=== PATIENT | male | born 1960 | race Two or more races ===

== ENCOUNTER 2023-02-02 12:12 | Inpatient (IN) | payer MEDICAID ==
[~2023-02-02] VITALS: Ht 177.8 cm; Wt 85.7 kg
[2023-02-02] MEDS ORDERED: IV NS 0.9% 1,000 ML BAG IV ONE ×2 (12:30→15:30)
[2023-02-02 12:52] LABS: BASOPHILS # (AUTO) 0.1 K/uL (0.0-0.2); BASOPHILS % (AUTO) 1.6 % (0.0-2.0); EOSINOPHILS % (AUTO) 0.1 % (0.0-6.0); HEMATOCRIT 40 % (39-51); HEMOGLOBIN 13.5 g/dL (13.5-17.5); LYMPHOCYTES # (AUTO) 0.5 K/uL (0.8-4.8); LYMPHOCYTES % (AUTO) 10.1 % (20.0-44.0); MEAN CORPUSCULAR HEMOGLOBIN 32 PG (26.0-33.0); MEAN CORPUSCULAR HGB CONC 34 g/dl (31.0-36.0); MEAN CORPUSCULAR VOLUME 94 fL (80-96); MONOCYTES # (AUTO) 0.5 K/uL (0.1-1.30); MONOCYTES % (AUTO) 8.4 % (2.0-12.0); NEUTROPHILS # (AUTO) 4.3 K/uL (1.8-8.9); NEUTROPHILS % (AUTO) 79.8 % (43.0-81.0); PLATELET COUNT (AUTO) 194 K/uL (150-450); RED CELL DISTRIBUTION WIDTH 12.6 % (11.5-15.0); WHITE BLOOD COUNT (AUTO) 5.4 K/uL (4.3-11.0)
[2023-02-02 13:12] LABS: CALCIUM, SERUM 11.1 mg/dL (8.5-10.1); CARBON DIOXIDE 19 mmol/L (21-32); CHLORIDE 82 mmol/L (98-107); CREATININE 1.1 mg/dL (0.6-1.3); GLUCOSE 115 mg/dL (74-106); POTASSIUM 3.4 mmol/L (3.5-5.1); SODIUM SERUM 123 mmol/L (136-145); UREA NITROGEN, BLOOD 24 mg/dL (7-18)
[2023-02-02 13:21] LABS: LACTIC ACID 2.3 mmol/L (0.4-2.0)
[2023-02-02 13:26] LABS: THYROID STIMULATING HORMONE 1.102 uIU/mL (0.358-3.74)
[2023-02-02 13:27] LABS: ALANINE AMINOTRANSFERASE 37 U/L (12-78); ALBUMIN 3.4 g/dL (3.4-5.0); ALKALINE PHOSPHATASE 71 U/L (46-116); ASPARTATE AMINOTRANSFERASE 57 U/L (15-37); BILIRUBIN,DIRECT 0.3 mg/dL (0.0-0.2)
[2023-02-02] MEDS ORDERED: CHOL100040 PO (14:07)
[2023-02-02] MEDS ORDERED: PROM118S5 PO (14:07)
[2023-02-02] MEDS ORDERED: ATOR10TA PO (14:07)
[2023-02-02] MEDS ORDERED: MIRT-119 PO (14:07)
[2023-02-02] MEDS ORDERED: ASPI-1169 PO (14:07)
[2023-02-02] MEDS ORDERED: TRAZ-182 PO (14:07)
[2023-02-02] MEDS ORDERED: ONDA4TAB5 PO (14:07)
[2023-02-02] MEDS ORDERED: MULT-188 PO (14:07)
[2023-02-02] MEDS ORDERED: AMLO5TAB4 PO (14:07)
[2023-02-02] MEDS ORDERED: PREG100C PO (14:07)
[2023-02-02] MEDS ORDERED: TIZA4TAB5 PO (14:07)
[2023-02-02] MEDS ORDERED: OMEP40CA21 PO (14:07)
[2023-02-02] MEDS ORDERED: AMAN100T PO (14:07)
[2023-02-02] MEDS ORDERED: SERT50TA PO (14:07)
[2023-02-02] MEDS ORDERED: ALBU18HF2 IH (14:07)
[2023-02-02] MEDS ORDERED: RISP0.5T65 PO (14:07)
[2023-02-02] MEDS ORDERED: BUDE10.2 IH (14:07)
[2023-02-02] MEDS ORDERED: HYDR-3972 PO (14:07)
[2023-02-02] MEDS ORDERED: MONT10TA22 PO (14:07)
[2023-02-02] MEDS ORDERED: LORA-259 PO (14:07)
[2023-02-02] MEDS ORDERED: LISI20TA30 PO (14:23)
[2023-02-02] MEDS ORDERED: MAGNESIUM HYDROXIDE 30 ML UDC PO PRN (15:30)
[2023-02-02] MEDS ORDERED: MAG HYDROX/AL HYDROX/SIMETH 30 ML UDC PO PRN (15:30)
[2023-02-02] MEDS ORDERED: CEFEPIME 1 GM in IV D5W 50 ML IV ONE (15:30)
[2023-02-02] MEDS ORDERED: ONDANSETRON HCL/PF 4 MG/2 ML VIAL IVP PRN (15:30)
[2023-02-02] MEDS ORDERED: ACETAMINOPHEN 325 MG TABLET PO PRN (15:30)
[2023-02-02] MEDS ORDERED: MORPHINE SULFATE INJ 2 MG/ML DISP.SYRIN IV PRN (15:30)
[2023-02-02] MEDS ORDERED: VANCOMYCIN 1 GM in IV D5W 250 ML IV ONE (15:30)
[2023-02-02] MEDS ORDERED: IV NS 0.9% 1,000 ML IV SCH (15:30)
[2023-02-02 15:40] VITALS: BP 175/91; TEMP 97.9; O2SAT 100
[2023-02-02] MEDS ORDERED: LORAZEPAM INJ 2 MG/ML VIAL IV PRN (17:00)
[2023-02-02 17:17] LABS: SERUM AMMONIA 4 umol/L (11-32)
[2023-02-02 17:28] LABS: ACETONE, SERUM MODERATE (NEGATIVE)
[2023-02-02] MEDS: CHLORDIAZEPOXIDE HCL 25 MG CAPSULE PO SCH (18:06)
[2023-02-02 20:00] VITALS: BP 167/98; TEMP 98.6; O2SAT 100
[2023-02-02] MEDS: HEPARIN SODIUM, PORCINE 5000 UNITS/1 ML VIAL SQ SCH (21:08)
[2023-02-02 21:18] LABS: CALCIUM, SERUM 9.7 mg/dL (8.5-10.1); CREATININE 0.9 mg/dL (0.6-1.3)
[2023-02-02 21:21] LABS: POTASSIUM 2.7 mmol/L (3.5-5.1)
[2023-02-02] MEDS ORDERED: IV NS 0.9% 1,000 ML BAG IV PRN (21:30)
[2023-02-02] MEDS: POTASSIUM CHLORIDE 10 MEQ/50 ML PREMIXED IVPB FOR PERIPHERAL LINE IV SCH ×2 (22:43→23:53)
[2023-02-02] MEDS: IV NS 0.9% 1,000 ML IV PRN (22:44)
[2023-02-03] VITALS: BP 166/93; TEMP 98.2; O2SAT 100
[2023-02-03] MEDS: CHLORDIAZEPOXIDE HCL 25 MG CAPSULE PO SCH ×3 (00:07→16:29)
[2023-02-03] MEDS: CLONIDINE HCL 0.1 MG TABLET PO PRN (00:43)
[2023-02-03] MEDS: POTASSIUM CHLORIDE 10 MEQ/50 ML PREMIXED IVPB FOR PERIPHERAL LINE IV SCH ×2 (01:05→02:04)
[2023-02-03 04:00] VITALS: BP 106/82; TEMP 98.4; O2SAT 100
[2023-02-03 06:19] LABS: BASOPHILS % (AUTO) 0.1 % (0.0-2.0); EOSINOPHILS % (AUTO) 0.5 % (0.0-6.0); HEMATOCRIT 38 % (39-51); HEMOGLOBIN 12.6 g/dL (13.5-17.5); LYMPHOCYTES # (AUTO) 0.8 K/uL (0.8-4.8); LYMPHOCYTES % (AUTO) 15.5 % (20.0-44.0); MEAN CORPUSCULAR HEMOGLOBIN 33 PG (26.0-33.0); MEAN CORPUSCULAR HGB CONC 33 g/dl (31.0-36.0); MEAN CORPUSCULAR VOLUME 98 fL (80-96); MONOCYTES # (AUTO) 0.9 K/uL (0.1-1.30); MONOCYTES % (AUTO) 16.1 % (2.0-12.0); NEUTROPHILS # (AUTO) 3.6 K/uL (1.8-8.9); NEUTROPHILS % (AUTO) 67.8 % (43.0-81.0); PLATELET COUNT (AUTO) 154 K/uL (150-450); RED BLOOD CELL COUNT(AUTO) 3.86 MIL/uL (4.5-6.0); RED CELL DISTRIBUTION WIDTH 12.9 % (11.5-15.0); WHITE BLOOD COUNT (AUTO) 5.4 K/uL (4.3-11.0)
[2023-02-03 06:41] LABS: ALBUMIN 2.5 g/dL (3.4-5.0); BILIRUBIN,TOTAL 0.6 mg/dL (0.2-1.0); CALCIUM, SERUM 8.4 mg/dL (8.5-10.1); CREATININE 0.8 mg/dL (0.6-1.3); MAGNESIUM 1.6 mg/dL (1.8-2.4); TOTAL PROTEIN, SERUM 5.5 g/dL (6.4-8.2)
[2023-02-03 06:51] LABS: POTASSIUM 2.8 mmol/L (3.5-5.1)
[2023-02-03 07:00] VITALS: BP 138/82; TEMP 97.7; O2SAT 100
[2023-02-03] MEDS: LISINOPRIL (20MG) 20 MG TABLET PO SCH (08:52)
[2023-02-03] MEDS: HEPARIN SODIUM, PORCINE 5000 UNITS/1 ML VIAL SQ SCH ×2 (08:53→20:51)
[2023-02-03] MEDS: POTASSIUM CHLORIDE 20 MEQ TAB.PRT.SR PO SCH ×2 (08:56→16:29)
[2023-02-03] MEDS ORDERED: MAGNESIUM OXIDE 400 MG TABLET PO ONE (11:00)
[2023-02-03] MEDS: IV NS 0.9% 1,000 ML IV PRN ×2 (11:24→21:44)
[2023-02-03 11:30] VITALS: BP 101/78; TEMP 97.5; O2SAT 100
[2023-02-03 16:00] VITALS: BP 100/60; TEMP 97.4; O2SAT 99
[2023-02-03] MEDS ORDERED: NEUTRA PHOS 1 POWD.PACKET PO ONE (16:00)
[2023-02-03 19:49] LABS: URINE SODIUM, RANDOM 20 mmol/l (40-220)
[2023-02-03 19:51] LABS: APPEARANCE,URINE CLEAR (CLEAR); BILIRUBIN,URINE 1+ (NEGATIVE); BLOOD, URINE NEGATIVE Ery/uL (NEGATIVE); COLOR,URINE YELLOW (YELLOW); KETONES,URINE 2+ mg/dL (NEGATIVE); LEUKOCYTE ESTERASE ,URINE NEGATIVE (NEGATIVE); NITRITE, URINE NEGATIVE (NEGATIVE); PROTEIN,URINE 1+ mg/dl (NEGATIVE); UGLUCOSE NEGATIVE (NEGATIVE)
[2023-02-03 20:36] VITALS: BP 102/63; TEMP 98; O2SAT 96
[2023-02-03 20:52] LABS: ADD URINE CULTURE YES; BACTERIA,URINE 2+ /HPF (None Seen); MUCUS,URINE Few /LPF (None Seen); RBC,URINE 0-2 /HPF (0-2); SQUAMOUS EPITHELIAL CELL,UR None Seen /HPF (None Seen); WBC,URINE NONE SEEN /HPF (0-3); YEAST,URINE Rare /HPF (None Seen)
[2023-02-04] MEDS: CHLORDIAZEPOXIDE HCL 25 MG CAPSULE PO SCH ×4 (01:52→16:56)
[2023-02-04 05:47] LABS: BASOPHILS % (AUTO) 0.7 % (0.0-2.0); EOSINOPHILS # (AUTO) 0.1 K/uL (0.0-0.7); EOSINOPHILS % (AUTO) 1.2 % (0.0-6.0); HEMATOCRIT 31 % (39-51); HEMOGLOBIN 10.8 g/dL (13.5-17.5); LYMPHOCYTES # (AUTO) 0.9 K/uL (0.8-4.8); LYMPHOCYTES % (AUTO) 21.9 % (20.0-44.0); MEAN CORPUSCULAR HEMOGLOBIN 32 PG (26.0-33.0); MEAN CORPUSCULAR HGB CONC 34 g/dl (31.0-36.0); MEAN CORPUSCULAR VOLUME 94 fL (80-96); MONOCYTES # (AUTO) 0.4 K/uL (0.1-1.30); MONOCYTES % (AUTO) 10.3 % (2.0-12.0); NEUTROPHILS # (AUTO) 2.8 K/uL (1.8-8.9); NEUTROPHILS % (AUTO) 65.9 % (43.0-81.0); PLATELET COUNT (AUTO) 162 K/uL (150-450); RED BLOOD CELL COUNT(AUTO) 3.34 MIL/uL (4.5-6.0); RED CELL DISTRIBUTION WIDTH 12.7 % (11.5-15.0); WHITE BLOOD COUNT (AUTO) 4.3 K/uL (4.3-11.0)
[2023-02-04 06:08] LABS: CALCIUM, SERUM 7.8 mg/dL (8.5-10.1); CREATININE 0.7 mg/dL (0.6-1.3); MAGNESIUM 1.3 mg/dL (1.8-2.4); PHOSPHORUS 1.2 mg/dL (2.5-4.9); POTASSIUM 2.9 mmol/L (3.5-5.1)
[2023-02-04 06:17] LABS: THYROID STIMULATING HORMONE 1.326 uIU/mL (0.358-3.74); URIC ACID 6.7 mg/dL (2.6-7.2)
[2023-02-04 07:00] VITALS: BP 146/83; TEMP 97.7; O2SAT 100
[2023-02-04] MEDS: POTASSIUM CHLORIDE 20 MEQ TAB.PRT.SR PO SCH ×2 (09:54→16:55)
[2023-02-04] MEDS: LISINOPRIL (20MG) 20 MG TABLET PO SCH (09:54)
[2023-02-04] MEDS: HEPARIN SODIUM, PORCINE 5000 UNITS/1 ML VIAL SQ SCH ×2 (09:56→21:37)
[2023-02-04] MEDS: ENSURE ENLIVE 237 ML LIQUID (VANILLA) PO SCH (09:57)
[2023-02-04] MEDS: Magnesium 1GM/D5W 100ML PREMIX 100 ML IV SCH ×4 (11:16→14:22)
[2023-02-04 11:30] VITALS: BP 122/78; TEMP 98.9; O2SAT 99
[2023-02-04] MEDS: Potassium Chloride 20 MEQ in IV NS 0.9% 1,000 ML IV SCH ×2 (11:46→22:01)
[2023-02-04] MEDS: NEUTRA PHOS 1 POWD.PACKET PO SCH ×3 (11:47→16:55)
[2023-02-04 14:34] LABS: OSMOLALITY,URINE 695 mOS/kg (340-1090)
[2023-02-04 16:00] VITALS: BP 114/73; TEMP 98.2; O2SAT 99
[2023-02-04 20:00] VITALS: BP 131/80; TEMP 98; O2SAT 98
[2023-02-05 08:00] VITALS: BP 125/73; TEMP 98.8; O2SAT 97
[2023-02-05] MEDS: Potassium Chloride 20 MEQ in IV NS 0.9% 1,000 ML IV SCH ×2 (08:10→19:52)
[2023-02-05] MEDS: CHLORDIAZEPOXIDE HCL 25 MG CAPSULE PO SCH ×3 (09:00→17:00)
[2023-02-05 09:19] LABS: CALCIUM, SERUM 7.8 mg/dL (8.5-10.1); CREATININE 0.7 mg/dL (0.6-1.3); POTASSIUM 3.9 mmol/L (3.5-5.1)
[2023-02-05 09:24] LABS: ALBUMIN 2.1 g/dL (3.4-5.0); BILIRUBIN,TOTAL 0.4 mg/dL (0.2-1.0); TOTAL PROTEIN, SERUM 5.3 g/dL (6.4-8.2)
[2023-02-05] MEDS: ENSURE ENLIVE 237 ML LIQUID (VANILLA) PO SCH (09:26)
[2023-02-05] MEDS: LISINOPRIL (20MG) 20 MG TABLET PO SCH (09:28)
[2023-02-05] MEDS: HEPARIN SODIUM, PORCINE 5000 UNITS/1 ML VIAL SQ SCH ×2 (09:31→20:37)
[2023-02-05] MEDS ORDERED: Z GUARD REMEDY 4 OZ OINT TP PRN (10:30)
[2023-02-05] MEDS: Z GUARD REMEDY 4 OZ OINT TP SCH (11:17)
[2023-02-05 16:00] VITALS: BP 145/79; TEMP 99.5; O2SAT 99
[2023-02-05] MEDS: CLOTRIMAZOLE 1% 15 GM TUBE TP SCH (17:16)
[2023-02-05 20:00] VITALS: BP 141/81; TEMP 98.8; O2SAT 99
[2023-02-06] MEDS: Potassium Chloride 20 MEQ in IV NS 0.9% 1,000 ML IV SCH ×2 (05:29→14:23)
[2023-02-06 06:17] LABS: CREATININE 0.6 mg/dL (0.6-1.3); POTASSIUM 3.9 mmol/L (3.5-5.1)
[2023-02-06 06:32] LABS: ALBUMIN 2.2 g/dL (3.4-5.0); BILIRUBIN,TOTAL 0.3 mg/dL (0.2-1.0); TOTAL PROTEIN, SERUM 5.5 g/dL (6.4-8.2)
[2023-02-06 08:00] VITALS: BP 150/94; TEMP 99; O2SAT 96
[2023-02-06] MEDS: Z GUARD REMEDY 4 OZ OINT TP SCH (09:49)
[2023-02-06] MEDS: CLOTRIMAZOLE 1% 15 GM TUBE TP SCH ×2 (09:49→16:16)
[2023-02-06] MEDS: LISINOPRIL (20MG) 20 MG TABLET PO SCH (09:49)
[2023-02-06] MEDS: HEPARIN SODIUM, PORCINE 5000 UNITS/1 ML VIAL SQ SCH ×2 (09:50→20:58)
[2023-02-06] MEDS: ENSURE ENLIVE 237 ML LIQUID (VANILLA) PO SCH (09:58)
[2023-02-06 16:00] VITALS: BP 150/84; TEMP 100; O2SAT 100
[2023-02-07] MEDS: Potassium Chloride 20 MEQ in IV NS 0.9% 1,000 ML IV SCH ×3 (00:43→22:45)
[2023-02-07 04:12] VITALS: BP 177/91; TEMP 97.1; O2SAT 98
[2023-02-07] MEDS: CLONIDINE HCL 0.1 MG TABLET PO PRN (04:17)
[2023-02-07 07:10] LABS: CALCIUM, SERUM 8.1 mg/dL (8.5-10.1); CREATININE 0.6 mg/dL (0.6-1.3); POTASSIUM 3.9 mmol/L (3.5-5.1)
[2023-02-07 07:15] LABS: BILIRUBIN,TOTAL 0.2 mg/dL (0.2-1.0); TOTAL PROTEIN, SERUM 5.4 g/dL (6.4-8.2)
[2023-02-07 08:00] VITALS: BP 147/87; TEMP 97.7; O2SAT 100
[2023-02-07 08:19] LABS: BASOPHILS % (AUTO) 0.4 % (0.0-2.0); EOSINOPHILS % (AUTO) 0.7 % (0.0-6.0); HEMATOCRIT 33 % (39-51); HEMOGLOBIN 11.2 g/dL (13.5-17.5); LYMPHOCYTES # (AUTO) 1.1 K/uL (0.8-4.8); LYMPHOCYTES % (AUTO) 19.5 % (20.0-44.0); MEAN CORPUSCULAR HEMOGLOBIN 32 PG (26.0-33.0); MEAN CORPUSCULAR HGB CONC 34 g/dl (31.0-36.0); MEAN CORPUSCULAR VOLUME 96 fL (80-96); MONOCYTES # (AUTO) 0.6 K/uL (0.1-1.30); MONOCYTES % (AUTO) 11.9 % (2.0-12.0); NEUTROPHILS # (AUTO) 3.6 K/uL (1.8-8.9); NEUTROPHILS % (AUTO) 67.5 % (43.0-81.0); PLATELET COUNT (AUTO) 189 K/uL (150-450); RED BLOOD CELL COUNT(AUTO) 3.46 MIL/uL (4.5-6.0); RED CELL DISTRIBUTION WIDTH 13.3 % (11.5-15.0); WHITE BLOOD COUNT (AUTO) 5.4 K/uL (4.3-11.0)
[2023-02-07] MEDS: THIAMINE HCL 100 MG TABLET PO SCH (08:43)
[2023-02-07] MEDS: AMLODIPINE BESYLATE 5 MG TABLET PO SCH (08:43)
[2023-02-07] MEDS: LISINOPRIL (20MG) 20 MG TABLET PO SCH (08:44)
[2023-02-07] MEDS: ENSURE ENLIVE 237 ML LIQUID (VANILLA) PO SCH (08:44)
[2023-02-07] MEDS: FOLIC ACID 1 MG TABLET PO SCH (08:44)
[2023-02-07] MEDS: HEPARIN SODIUM, PORCINE 5000 UNITS/1 ML VIAL SQ SCH ×3 (08:47→21:58)
[2023-02-07] MEDS: Z GUARD REMEDY 4 OZ OINT TP SCH (10:02)
[2023-02-07] MEDS: CLOTRIMAZOLE 1% 15 GM TUBE TP SCH ×2 (10:02→17:45)
[2023-02-07 16:00] VITALS: BP 146/86; TEMP 98.5; O2SAT 100
[2023-02-07] MEDS: CYANOCOBALAMIN 1,000 MCG/ML VIAL IM SCH (17:46)
[2023-02-07 20:00] VITALS: BP 138/81; TEMP 98.5; O2SAT 100
[2023-02-08] MEDS: Potassium Chloride 20 MEQ in IV NS 0.9% 1,000 ML IV SCH ×2 (06:24→17:48)
[2023-02-08 07:00] LABS: CALCIUM, SERUM 8.5 mg/dL (8.5-10.1); CREATININE 0.6 mg/dL (0.6-1.3); POTASSIUM 3.9 mmol/L (3.5-5.1)
[2023-02-08 07:06] LABS: ALBUMIN 2.3 g/dL (3.4-5.0); BILIRUBIN,TOTAL 0.3 mg/dL (0.2-1.0)
[2023-02-08 08:00] VITALS: BP 164/92; TEMP 97.5; O2SAT 100
[2023-02-08] MEDS: FOLIC ACID 1 MG TABLET PO SCH (08:43)
[2023-02-08] MEDS: THIAMINE HCL 100 MG TABLET PO SCH (08:43)
[2023-02-08] MEDS: LISINOPRIL (20MG) 20 MG TABLET PO SCH (08:44)
[2023-02-08] MEDS: AMLODIPINE BESYLATE 5 MG TABLET PO SCH (08:52)
[2023-02-08] MEDS: HEPARIN SODIUM, PORCINE 5000 UNITS/1 ML VIAL SQ SCH ×2 (08:56→20:26)
[2023-02-08] MEDS: ENSURE ENLIVE 237 ML LIQUID (VANILLA) PO SCH (08:59)
[2023-02-08] MEDS: CYANOCOBALAMIN 1,000 MCG/ML VIAL IM SCH (08:59)
[2023-02-08] MEDS: CLOTRIMAZOLE 1% 15 GM TUBE TP SCH ×2 (09:00→17:55)
[2023-02-08] MEDS: Z GUARD REMEDY 4 OZ OINT TP SCH (09:01)
[2023-02-08 16:00] VITALS: BP 114/71; TEMP 97.4; O2SAT 99
[2023-02-08 20:41] VITALS: BP 142/85; TEMP 97.7; O2SAT 100
[2023-02-09] MEDS: Potassium Chloride 20 MEQ in IV NS 0.9% 1,000 ML IV SCH (02:33)
[2023-02-09 06:56] LABS: CALCIUM, SERUM 9.2 mg/dL (8.5-10.1); CREATININE 0.7 mg/dL (0.6-1.3); POTASSIUM 3.6 mmol/L (3.5-5.1)
[2023-02-09 07:01] LABS: ALBUMIN 2.6 g/dL (3.4-5.0); BILIRUBIN,TOTAL 0.3 mg/dL (0.2-1.0)
[2023-02-09 08:00] VITALS: BP 141/99; TEMP 97.4; O2SAT 100
[2023-02-09] MEDS: LISINOPRIL (20MG) 20 MG TABLET PO SCH (09:15)
[2023-02-09] MEDS: THIAMINE HCL 100 MG TABLET PO SCH (09:15)
[2023-02-09] MEDS: FOLIC ACID 1 MG TABLET PO SCH (09:15)
[2023-02-09] MEDS: Z GUARD REMEDY 4 OZ OINT TP SCH (09:16)
[2023-02-09] MEDS: AMLODIPINE BESYLATE 5 MG TABLET PO SCH (09:16)
[2023-02-09] MEDS: CLOTRIMAZOLE 1% 15 GM TUBE TP SCH ×2 (09:16→16:11)
[2023-02-09] MEDS: CYANOCOBALAMIN 1,000 MCG/ML VIAL IM SCH (09:16)
[2023-02-09] MEDS: ENSURE ENLIVE 237 ML LIQUID (VANILLA) PO SCH (09:17)
[2023-02-09] MEDS: HEPARIN SODIUM, PORCINE 5000 UNITS/1 ML VIAL SQ SCH ×2 (09:22→20:18)
[2023-02-09 16:00] VITALS: BP 129/82; TEMP 97.9; O2SAT 98
[2023-02-09 19:00] VITALS: BP 147/85; TEMP 97.9; O2SAT 100
[2023-02-09 20:00] VITALS: BP 147/85; TEMP 97.9; O2SAT 100
[2023-02-10 07:47] LABS: CALCIUM, SERUM 9.3 mg/dL (8.5-10.1); CREATININE 0.8 mg/dL (0.6-1.3); POTASSIUM 3.8 mmol/L (3.5-5.1)
[2023-02-10 07:53] LABS: ALBUMIN 2.7 g/dL (3.4-5.0); BILIRUBIN,TOTAL 0.3 mg/dL (0.2-1.0); TOTAL PROTEIN, SERUM 6.9 g/dL (6.4-8.2)
[2023-02-10] MEDS: THIAMINE HCL 100 MG TABLET PO SCH (09:01)
[2023-02-10] MEDS: FOLIC ACID 1 MG TABLET PO SCH (09:01)
[2023-02-10] MEDS: LISINOPRIL (20MG) 20 MG TABLET PO SCH (09:03)
[2023-02-10] MEDS: AMLODIPINE BESYLATE 5 MG TABLET PO SCH (09:03)
[2023-02-10] MEDS: Z GUARD REMEDY 4 OZ OINT TP SCH (09:25)
[2023-02-10] MEDS: CYANOCOBALAMIN 1,000 MCG/ML VIAL IM SCH (09:25)
[2023-02-10] MEDS: CLOTRIMAZOLE 1% 15 GM TUBE TP SCH ×2 (09:30→17:50)
[2023-02-10 10:44] VITALS: BP 140/84; TEMP 97.6; O2SAT 100
[2023-02-10 20:00] VITALS: BP 146/84; TEMP 98; O2SAT 100
[2023-02-11 05:55] LABS: CALCIUM, SERUM 9.6 mg/dL (8.5-10.1); CREATININE 0.8 mg/dL (0.6-1.3); POTASSIUM 3.6 mmol/L (3.5-5.1)
[2023-02-11 06:00] LABS: ALBUMIN 2.7 g/dL (3.4-5.0); BILIRUBIN,TOTAL 0.3 mg/dL (0.2-1.0); TOTAL PROTEIN, SERUM 6.6 g/dL (6.4-8.2)
[2023-02-11 08:00] VITALS: BP 123/89; TEMP 98.2; O2SAT 100
[2023-02-11] MEDS: CYANOCOBALAMIN 1,000 MCG/ML VIAL IM SCH (08:40)
[2023-02-11] MEDS: THIAMINE HCL 100 MG TABLET PO SCH (08:41)
[2023-02-11] MEDS: LISINOPRIL (20MG) 20 MG TABLET PO SCH (08:41)
[2023-02-11] MEDS: FOLIC ACID 1 MG TABLET PO SCH (08:42)
[2023-02-11] MEDS: AMLODIPINE BESYLATE 5 MG TABLET PO SCH (08:42)
[2023-02-11] MEDS: CLOTRIMAZOLE 1% 15 GM TUBE TP SCH ×2 (08:42→16:43)
[2023-02-11] MEDS: Z GUARD REMEDY 4 OZ OINT TP SCH (08:43)
[2023-02-11 18:29] VITALS: BP 96/72; TEMP 98.6; O2SAT 100
[2023-02-11 20:00] VITALS: BP 115/92; TEMP 98.7; O2SAT 99
[2023-02-12 06:57] LABS: CALCIUM, SERUM 9.4 mg/dL (8.5-10.1); CREATININE 0.9 mg/dL (0.6-1.3); POTASSIUM 3.5 mmol/L (3.5-5.1)
[2023-02-12 07:03] LABS: BILIRUBIN,TOTAL 0.4 mg/dL (0.2-1.0); TOTAL PROTEIN, SERUM 7.3 g/dL (6.4-8.2)
[2023-02-12 07:30] VITALS: BP 129/82; TEMP 98.4; O2SAT 100
[2023-02-12] MEDS: THIAMINE HCL 100 MG TABLET PO SCH (08:48)
[2023-02-12] MEDS: FOLIC ACID 1 MG TABLET PO SCH (08:48)
[2023-02-12] MEDS: AMLODIPINE BESYLATE 5 MG TABLET PO SCH (08:48)
[2023-02-12 08:49] VITALS: BP 129/82
[2023-02-12] MEDS: LISINOPRIL (20MG) 20 MG TABLET PO SCH (08:49)
[2023-02-12] MEDS: CYANOCOBALAMIN 1,000 MCG/ML VIAL IM SCH (08:49)
[2023-02-12] MEDS: CLOTRIMAZOLE 1% 15 GM TUBE TP SCH (09:00)
[2023-02-12] MEDS: Z GUARD REMEDY 4 OZ OINT TP SCH (09:00)
== END 2023-02-12 15:15 | DRG 426 ==
LOC: ER 12:34 → MED 17:03 → TELE 19:17 → MED 02-03 16:11
PROVIDERS: ADMIT Internal Medicine; ATTEND Internal Medicine
PROC: 05H633Z Insertion of Infusion Device into Left Subclavian Vein, Percutaneous Approach (ICD-10-PCS; principal; 2023-02-10)
PROC: B547ZZA Ultrasonography of Left Subclavian Vein, Guidance (ICD-10-PCS; 2023-02-10)
DX: E87.1 Hypo-osmolality and hyponatremia (principal); G93.41 Metabolic encephalopathy; E87.20 Acidosis, unspecified; E88.89 Other specified metabolic disorders; R62.7 Adult failure to thrive; E87.6 Hypokalemia; F10.139 Alcohol abuse with withdrawal, unspecified; Y90.0 Blood alcohol level of less than 20 mg/100 ml; E78.5 Hyperlipidemia, unspecified; E83.52 Hypercalcemia; E86.1 Hypovolemia; I10 Essential (primary) hypertension; J44.9 Chronic obstructive pulmonary disease, unspecified; R29.6 Repeated falls; Z79.82 Long term (current) use of aspirin; Z20.822 Contact with and (suspected) exposure to COVID-19; R26.89 Other abnormalities of gait and mobility; E53.8 Deficiency of other specified B group vitamins; W18.30XA Fall on same level, unspecified, initial encounter; Y93.9 Activity, unspecified; Y92.009 Unspecified place in unspecified non-institutional (private) residence as the place of occurrence of the external cause
CPT/HCPCS: 36410; 36415; 70450-TC; 71045-TC; 73564-TC; 76700-TC; 80048-TC; 80053-TC; 80076-TC; 81001; 82010-TC; 82140-TC; 82550-TC; 82553; 82607-TC; 82962-TC; 83605-TC; 83735-TC; 83921; 83935-TC; 84100-TC; 84295-TC; 84300-TC; 84443-TC; 84484-TC; 84550-TC; 85025-TC; 87040-TC; 87086-TC; 92526; 92611-TC; 97110-TC; 97112-TC; 97116-TC; 97530-TC; 97535-TC; A4223; G0378; G0480; J0692; J1644; J3370; J3420; J3475; J3480; J7030; J7040; J7050; J7060